=== PATIENT | female | born 1980 | race Caucasian/White ===

== ENCOUNTER 2017-04-24 18:12 | Emergency (ER) | payer OTHER | END 2017-04-24 21:22 | disposition home or self-care (01) | LOC: FER 18:12 | DX: S39.012A Strain of muscle, fascia and tendon of lower back, initial encounter (principal); R03.0 Elevated blood-pressure reading, without diagnosis of hypertension; F17.210 Nicotine dependence, cigarettes, uncomplicated; Z90.711 Acquired absence of uterus with remaining cervical stump; Z91.040 Latex allergy status; Z79.899 Other long term (current) drug therapy | CPT/HCPCS: J1100; J1170; J1885 ==

== ENCOUNTER 2022-01-17 21:02 | Day surgery (SDCO) | payer OTHER ==
[~2022-01-17] VITALS: Ht 162.6 cm; Wt 56.4 kg
[2022-01-17 22:09] LABS: BASOPHIL 0.6 % (0-2); EOSINOPHIL 2.6 % (0-5); HCT 45.3 % (37.0-47.0); HGB 14.9 g/dl (12.5-16.0); LYMPHOCYTE 20.4 % (15-48); MCH 31.3 pg (25.0-31.0); MCHC 32.9 g/dL (32.0-36.0); MCV 95.2 fL (78.0-100.0); MONOCYTE 4.8 % (0-12); MPV 8.5 fL (6.0-9.5); NEUTROPHIL 71.4 % (41-80); NRBC 0; PLT 465 K/uL (150-400); RBC 4.76 M/uL (4.20-5.40); RDW 13.2 % (11.5-14.0); WBC 12.5 K/uL (4.0-10.5)
[2022-01-17 22:26] LABS: ALBUMIN 3.8 g/dL (3.4-5.0); BILIRUBIN - TOTAL 0.3 mg/dL (0.2-1.0); BUN/CREAT RATIO (CALC) 12.3 RATIO; CREATININE 0.81 mg/dL (0.51-0.95); GLOBULIN (CALCULATION) 3.2 g/dL; POTASSIUM 3.6 mmol/L (3.5-5.1)
[2022-01-17 22:33] LABS: BILIRUBIN NEGATIVE (NEGATIVE); BLOOD 1+ Ery/uL (NEGATIVE); CLARITY CLEAR (CLEAR); COLOR YELLOW (YELLOW); GLUCOSE (U) NORMAL (NORMAL); LEUKOCYTES NEGATIVE Leu/uL (NEGATIVE); NITRITE NEGATIVE (NEGATIVE); PROTEIN NEGATIVE (NEGATIVE); UROBILINOGEN 0.2 mg/dL (0.2-1.0)
[2022-01-17 22:45] LABS: BACTERIA TRACE; URINARY WBC RARE
[2022-01-17 23:28] LABS: INR 0.95 (0.9-1.2); PROTHROMBIN TIME 12.1 SECONDS (11.8-13.4)
[2022-01-18] MEDS ORDERED: NEURONTIN300 MG PO (09:41)
[2022-01-18] MEDS ORDERED: HYDROCODON-ACE1 EAC2 PO ×2 (09:41→17:12)
[2022-01-18] MEDS ORDERED: ROBAXIN500 MG PO (09:42)
[2022-01-18] MEDS ORDERED: [UNRECOGNIZED DRUG - OTHER] PO ×2 (09:43→09:44)
[2022-01-18] MEDS ORDERED: SUDAFED30 MG PO (09:44)
[2022-01-18] MEDS ORDERED: SENNA LAXATIVE8.6 MG PO (17:12)
[2022-01-18] MEDS ORDERED: MIRALAX 238GM238 GM PO (17:12)
== END 2022-01-18 18:17 | disposition home or self-care (01) ==
LOC: FER 21:02 → FMS 23:36
PROVIDERS: Emergency Medicine; ADMIT Internal Medicine
DX: K35.30 Acute appendicitis with localized peritonitis, without perforation or gangrene (principal); M51.36 Other intervertebral disc degeneration, lumbar region; G89.4 Chronic pain syndrome; D18.09 Hemangioma of other sites; F17.210 Nicotine dependence, cigarettes, uncomplicated; D72.829 Elevated white blood cell count, unspecified; Z91.040 Latex allergy status; Z79.899 Other long term (current) drug therapy; Z20.822 Contact with and (suspected) exposure to COVID-19
CPT/HCPCS: 36415; 80053; 81001; 83690; 84145; 84703; 85025; 85610; 87040; 94010; G0378; J1100; J1170; J1644; J1885; J2060; J2270; J2405; J2543; J2704; J2710; J3010; J7030; J7120; U0002